=== PATIENT | female | born 1945 | race Caucasian/White ===

== ENCOUNTER 2016-12-19 20:35 | Inpatient (IN) ==
[2016-12-19] MEDS ORDERED: *HR* HYDROmorphone (PF) 1 MG/ML SYRINGE IVP PRN (23:00)
[2016-12-19] MEDS ORDERED: *HR* Promethazine 25 MG/ML VIAL IVP PRN (23:00)
[2016-12-19] MEDS ORDERED: 0.9 % Sodium Chloride 1,000 ML IVC SCH (23:00)
[2016-12-19] MEDS ORDERED: *HR* OxyCODONE Immed Rel 5 MG TABLET PO PRN (23:00)
[2016-12-19] MEDS ORDERED: Naloxone 0.4 MG/ML INJ IVP PRN (23:00)
[2016-12-20] MEDS ORDERED: Ipratropium/Albuterol Neb 3 ML IH PRN (00:35)
[2016-12-20] MEDS ORDERED: Dextrose Gel 15 GM PO PRN ×2 (00:35)
[2016-12-20] MEDS ORDERED: D5% in Water 1,000 ML IV PRN (00:35)
[2016-12-20] MEDS ORDERED: *HR* Dextrose 50 % in Water (Syg) 50 ML SYRINGE IVP PRN (00:35)
[2016-12-20] MEDS ORDERED: Benzonatate 100 MG CAPSULE PO PRN (00:35)
[2016-12-20] MEDS ORDERED: Vancomycin 1,500 MG in D5% in Water 250 ML IVPB SCH ×2 (01:00→09:00)
--- NOTE | 2016-12-20 02:20 | Internal Med History&Physical ---
<Abeba Diana - Last Filed: 12/20/16 03:22> Date of Encounter: 12/20/16 Time of Encounter: 01:30 Assessment and Plan (1) Sepsis Current visit: Yes Status: Acute WBC 14.1, Lactate 3.7 PIV Vanc 1g and Zosyn 3.375g given at [facility] Start Aztreonam, Vancomycin Blood cultures x 2, pending Wound culture, pending Urine culture, pending Qualifiers: Sepsis type: sepsis due to unspecified organism Qualified Code(s): A41.9 - Sepsis, unspecified organism (2) UTI (urinary tract infection) Current visit: Yes Status: Acute Urine culture, pending Cover for yeast with fluconazole Continue treatment plan as above Qualifiers: Urinary tract infection type: site unspecified Hematuria presence: with hematuria Qualified Code(s): N39.0 - Urinary tract infection, site not specified; R31.9 - Hematuria, unspecified (3) Abscess of skin of abdomen Current visit: Yes Status: Acute S/p incision and drainage wound culture, pending Repack wound once daily Continue treatment plan as above (4) Candidiasis Current visit: Yes Status: Acute IV Fluconazole Topical nystatin cream with overlying zinc oxide paste to infra-mammary folds, crease of pannus, groin (5) Diabetes type 2, uncontrolled Current visit: Yes Status: Acute Insulin protocol-basal and sliding scale Qualifiers: Diabetes mellitus complication status: with unspecified complications Diabetes mellitus intermediate card tender insulin use: unspecified residential insulin use status Qualified Code(s): E11.8 - Type 2 diabetes mellitus with unspecified complications; E11.65 - Type 2 diabetes mellitus with hyperglycemia; Z79.4 - residential (current) use of insulin (6) Chronic kidney disease Current visit: Yes Status: Acute Continue to monitor Qualifiers: Chronic kidney disease stage: stage 3 (moderate) Qualified Code(s): N18.3 - Chronic kidney disease, stage 3 (moderate) (7) DVT prophylaxis Current visit: Yes Status: Acute Heparin 5,000u subQ BID Internal Medicine - H&P: HPI Chief complaint: weakness, abscess Admitted From: Home Plans for Post Hospital Care: Home History of present illness: Ms. Cleary is a 71 year old female who presents to hospital today from [facility]. Patient presented to [facility] today with a 4 day history of inability to ambulate. She walks very little at baseline and spends most of her time sitting in the chair. She had a chemical stress test on Thursday due to dyspnea on exertion. She states that she has not felt well following the stress test. She states that she as been having weakness, dizziness, frequent urination. Her abdomen has had a not that has been tender, red, and swolllen. She denies fever, chills, headache, chest pain, racing heart, leg swelling,cough, dyspnea at rest, abdominal pain, nausea, vomiting, muscle pain. Past Med Surg Social Fam HX - Past Medical History Medical history: diabetes, hyperlipidemia, hypertension, other (peripheral neuropathy, obesity) Psychiatric history: anxiety - Past Surgical History Surgical History: appendectomy, orthopedic, other - Social History Smoking Status: Never smoker Smokeless Tobacco Status: No Alcohol use: none Drug use: none - Family History Father Living Status: Hx Family Cardiac Disorders: Yes ([place]) Hx Family Respiratory Disorders: No Hx Family Cancer: No Hx Family GI Disorders: No Hx Family Genitourinary Disorders: No Hx Family Endocrine Disorder: No Hx Family Musculoskeletal Disorders: No Hx Family Neuromuscular Disorders: No Hx Family Neurologic Disorders: No Hx Family HEENT Disorders: No Hx Family Autoimmune Disorders: No Hx Family Reproductive Disorders: No Hx Family Psychosocial Disorders: No Hx Family Medical Disorders: No Mother Living Status: Hx Family Cardiac Disorders: Yes ([place], triple bipass) Hx Family Respiratory Disorders: No Hx Family Cancer: No Hx Family GI Disorders: No Hx Family Genitourinary Disorders: No Hx Family Endocrine Disorder: No Hx Family Musculoskeletal Disorders: No Hx Family Neuromuscular Disorders: No Hx Family Neurologic Disorders: No Hx Family HEENT Disorders: No Hx Family Autoimmune Disorders: No Hx Family Reproductive Disorders: No Hx Family Psychosocial Disorders: No Hx Family Medical Disorders: No Brother Living Status: Still Living Hx Family Cardiac Disorders: No Hx Family Respiratory Disorders: No Hx Family Cancer: Yes Hx Family GI Disorders: No Hx Family Genitourinary Disorders: No Hx Family Endocrine Disorder: No Hx Family Musculoskeletal Disorders: Yes Hx Family Neuromuscular Disorders: No Hx Family Neurologic Disorders: No Hx Family HEENT Disorders: No Hx Family Autoimmune Disorders: No Hx Family Reproductive Disorders: No Hx Family Psychosocial Disorders: No Hx Family Medical Disorders: No Sister Living Status: Still Living Hx Family Cardiac Disorders: Yes Hx Family Respiratory Disorders: No Hx Family Cancer: No Hx Family GI Disorders: No Hx Family Genitourinary Disorders: No Hx Family Endocrine Disorder: Yes Hx Family Musculoskeletal Disorders: No Hx Family Neuromuscular Disorders: No Hx Family Neurologic Disorders: No Hx Family HEENT Disorders: No Hx Family Autoimmune Disorders: No Hx Family Reproductive Disorders: No Hx Family Psychosocial Disorders: No Hx Family Medical Disorders: No Internal Medicine - H&P: Meds Atorvastatin [Lipitor] 40 mg PO DAILY 12/19/16 [History] Buspirone HCl [Buspar] 10 mg PO BID 12/19/16 [History] Fenofibrate [Tricor] 54 mg PO DAILY 12/19/16 [History] Insulin ASPART [Novolog] 25 unit SQ TIDWM 12/19/16 [History] Insulin Glargine,Hum.rec.anlog [Lantus Solostar] 60 unit SQ DAILY 12/19/16 [ History] Metformin [Glucophage] 1,000 mg PO BID 12/19/16 [History] Pregabalin [Lyrica] 150 mg PO TID 12/19/16 [History] Quinapril HCl [Accupril] 40 mg PO HS 12/19/16 [History] Allergies Penicillins [PCN] Allergy (Mild, Verified 12/19/16 23:28) Itching All Systems PM: A 10-system review of systems was performed and is negative for pertinent findings except as documented above in the HPI. - Constitutional Vitals: Temp Pulse Resp BP Pulse Ox 98.5 F 119 19 114/61 96 12/19/16 22:37 12/19/16 22:37 12/19/16 22:37 12/19/16 22:37 12/19/16 22:37 General appearance: Present: disheveled, morbidly obese, pleasant, answers questions appropriately - Head Head exam: Present: atraumatic, normal inspection, normocephalic - Eye Eye exam: Present: EOMI - Respiratory Respiratory exam: Present: CTAB. Absent: rhonchi, wheezes - Cardiovascular Cardiovascular exam: Present: RRR, +S1, +S2, tachycardia - GI/Abdominal GI/Abdominal exam: Present: normal bowel sounds, soft, tenderness (tenderness to abdomen near abscess located at midline; tenderness to palpation below pannus ) - Rectal Additional comments: perirectal area violaceous and tender to palpation - Extremities Exam Extremities exam: Present: normal inspection, warm, radial pulses palpable and symetrical. Absent: pedal edema, tenderness - Incison Incision: Present: draining - Psychiatric Psychiatric exam: Present: normal affect - Skin Additional comments: abscess at midline abdomen draining serosanguinous fluid. Inframmary folds, fold of pannus, and groin with erythematous, foul-smelling, rash. Internal Med - H&P Results - EKG Data -: EKG Interpreted by Myself - Attending Attestation I examined this patient and my medical decision-making was reviewed with the [employer]ONE GRADER/PA/Advanced Practice Nurse/Resident Physician. I agree with the documented findings, disposition and treatment plan as described except to the extent set forth below. <Ricahr Eng - Last Filed: 12/24/16 01:18> Date of Encounter: 12/19/16 Time of Encounter: 23:00 Internal Medicine - H&P: HPI History of present illness: Ms. Cleary is a 71 year old female The patient was visited and interviewed and examined. I examined this patient and my medical decision-making was reviewed with the Resident Physician. I agree with the documented findings, disposition and treatment plan as described except to the extent set forth below. Cumulative laboratory and radiographic data reviewed and considered and discussed. Pertinent ancillary medical records including ECW and PCI documentation when available was reviewed and considered. Given the patient's presenting concerns, past medical history, clinical findings of symptoms, she is admitted at this time to undergo further evaluation and disposition. Orders were written as per the computerized physician order manager system.................... All Systems PM: A 10-system review of systems was performed and is negative for pertinent findings except as documented above in the HPI. - Constitutional Constitutional: as per HPI, malaise, no chills, no fever(s), no night sweats - EENT Eyes: as per HPI, no change in vision, no discharge, no pain, no photophobia Ears: as per HPI, no ear discharge, no ear pain, no tinnitus Nose, mouth and throat: as per HPI, no dysphagia, no nasal discharge, no neck pain, no sore throat - Cardiovascular Cardiovascular ROS IM: as per HPI, no chest pain, no diaphoresis, no dyspnea, no lightheadedness, no palpitations, no syncope - Respiratory Respiratory: as per HPI, no cough, no dyspnea, no wheezing, no excessive phlegm production - Gastrointestinal Gastrointestinal: as per HPI, no abdominal pain, no diarrhea, no hematemesis, no hematochezia, no melena, no nausea, no vomiting - Musculoskeletal Musculoskeletal ROS IM: as per HPI, no numbness, no tingling - Integumentary Integumentary IM: as per HPI, no rash, no unusual bruising - Neurological Neurological ROS: as per HPI, no confusion, no convulsions, no focal weakness, no numbness, no tingling, no tremor(s) - Psychiatric Psychiatric: as per HPI - Endocrine Endocrine IM: as per HPI - Hematologic/Lymphatic Hematologic/Lymphatic: as per HPI, no easy bruising - Allergic/Immunologic Allergic/Immunologic: as per HPI - Constitutional Vitals: Temp Pulse Resp BP Pulse Ox 98.2 F 83 18 122/63 97 12/24/16 00:13 12/24/16 00:13 12/24/16 00:13 12/24/16 00:13 12/24/16 00:13 Internal Med - H&P Results - Labs CBC & Chem 7: 12/20/16 05:26 12/22/16 10:16 - ABG Interpretation ABG results: 12/20/16 05:26 VBG pH 7.39 VBG pCO2 40 L VBG pO2 60 H VBG HCO3 24.2 - Impressions Vital Signs Temp Pulse Resp BP Pulse Ox 12/24/16 00:13 98.2 F 83 18 122/63 97 12/23/16 20:24 98.4 F 76 16 119/74 97 12/23/16 16:22 97.9 F 87 18 100/66 96 12/23/16 11:26 97.6 F 89 16 106/57 97 12/23/16 07:48 98.2 F 90 18 119/74 97 12/23/16 04:10 98.1 F 110 19 154/74 97 12/23/16 01:39 98.2 F 78 18 123/79 96 Intake and Output 12/23/16 12/23/16 12/24/16 15:59 23:59 07:59 Intake Total 460 / 460 590 / 590 Output Total 500 / 500 3100 / 3100 Balance -40 / -40 590 / 590 -3100 / -3100 Intake: IV Fluids 100 / 100 350 / 350 Azactam 2,000 MG In 100 / 100 100 / 100 Dextrose 5% (Minibag+) 100 ML 100 ML @ 200 mls/ hr IVPB Q8HR [facility] Rx#: [id number] Vancocin 1,250 MG In 250 / 250 Dextrose 5% 250 ML @ 166. 67 mls/hr IVPB Q12H [facility] Rx#:[id number] Oral 360 / 360 240 / 240 Output: Urine 500 / 500 3100 / 3100 Other: Meal Breakfast Dinner Percent of Meal Consumed 100% 100% Blood Glucose* 94 156 12/20/16 05:26 VBG pH 7.39 VBG pCO2 40 L VBG pO2 60 H VBG HCO3 24.2 Abnormal lab results RBC 3.46 M/mcL (3.82-4.97) L 12/20/16 05:26 Hgb 10.1 g/dL (11.5-15.4) L 12/20/16 05:26 Hct 30.9 % (35.3-44.9) L 12/20/16 05:26 ESR 98 mm/hr (0-15) H 12/20/16 05:26 PT 15.7 Seconds (9.4-12.1) H 12/22/16 10:16 APTT 25.9 Seconds (26.0-36.0) L 12/20/16 05:26 VBG pCO2 40 mmHg (41-51) L 12/20/16 05:26 VBG pO2 60 mmHg (25-40) H 12/20/16 05:26 Glucose 260 mg/dL (70-99) H 12/22/16 10:16 POC Glucose 156 (58-89) H 12/23/16 20:23 Hemoglobin A1c 8.4 % (-5.6) H 12/20/16 05:26 C-Peptide 3.9 ng/mL (0.8-3.5) H 12/20/16 05:26 Magnesium 1.3 mg/dL (1.6-2.6) L 12/22/16 04:57 C-Reactive Protein 210 mg/L (Less than 5) H 12/20/16 05:26 Albumin 2.7 g/dL (3.5-5.0) L 12/22/16 10:16 Globulin 4.4 g/dL (2.4-3.5) H 12/22/16 10:16 Albumin/Globulin Ratio 0.6 (1.1-2.2) L 12/22/16 10:16 HDL Cholesterol 21 mg/dL (40-59) L 12/20/16 05:26 Urine Glucose (UA) >=1000 mg/dL (Normal) H 12/20/16 05:50 Urine Urobilinogen 2.0 mg/dL (Normal) H 12/20/16 05:50 Ur Leukocyte Esterase Trace (Negative) H 12/20/16 05:50 Urine Microscopic WBC 5-15 per hpf (0-3) H 12/20/16 05:50 Ur Squamous Epith Cells Moderate per lpf (None-Few) H 12/20/16 05:50 Allergies Allergy/AdvReac Type Severity Reaction Status Date / Time Penicillins [PCN] Allergy Mild Itching Verified 12/19/16 23:28 Laboratory Results WBC 11.0 K/mcL (4.3-11.1) 12/20/16 05:26 RBC 3.46 M/mcL (3.82-4.97) L 12/20/16 05:26 Hgb 10.1 g/dL (11.5-15.4) L 12/20/16 05:26 Hct 30.9 % (35.3-44.9) L 12/20/16 05:26 MCV 89.3 fL (83.0-100.0) 12/20/16 05:26 MCH 29.2 pg (28.0-33.3) 12/20/16 05:26 MCHC 32.7 g/dL (31.6-35.5) 12/20/16 05:26 RDW 13.4 % (11.5-14.5) 12/20/16 05:26 Plt Count 190 K/mcL (140-400) 12/20/16 05:26 MPV 11.3 fL (9.4-12.4) 12/20/16 05:26 Immature Gran % 0.6 % (0-4) 12/20/16 05:26 Seg Neutrophils % 76.5 % 12/20/16 05:26 Lymphocytes % 11.9 % 12/20/16 05:26 Monocytes % 10.2 % 12/20/16 05:26 Eosinophils % 0.6 % 12/20/16 05:26 Basophils % 0.2 % 12/20/16 05:26 Neutrophils # 8.4 K/mcL (1.6-8.9) 12/20/16 05:26 Lymphocytes # 1.3 K/mcL (0.6-4.6) 12/20/16 05:26 Monocytes # 1.1 K/mcL (0.0-1.3) 12/20/16 05:26 Eosinophils # 0.1 K/mcL (0.0-0.6) 12/20/16 05:26 Basophils # 0.0 K/mcL (0.0-0.2) 12/20/16 05:26 ESR 98 mm/hr (0-15) H 12/20/16 05:26 PT 15.7 Seconds (9.4-12.1) H 12/22/16 10:16 INR 1.4 12/22/16 10:16 APTT 25.9 Seconds (26.0-36.0) L 12/20/16 05:26 VBG pH 7.39 pH Units (7.32-7.42) 12/20/16 05:26 VBG pCO2 40 mmHg (41-51) L 12/20/16 05:26 VBG pO2 60 mmHg (25-40) H 12/20/16 05:26 VBG HCO3 24.2 mEq/L (21-27) 12/20/16 05:26 Sodium 140 mEq/L (136-145) 12/22/16 10:16 Potassium 4.5 mEq/L (3.5-4.5) 12/22/16 10:16 Chloride 108 mEq/L (98-109) 12/22/16 10:16 Carbon Dioxide 20 mEq/L (19-29) 12/22/16 10:16 BUN 10 mg/dL (7-20) 12/22/16 10:16 Creatinine 0.88 mg/dL (0.57-1.11) 12/22/16 10:16 Est GFR ( Amer) > 60 (> 60) 12/22/16 10:16 Est GFR (Non-Af Amer) > 60 (> 60) 12/22/16 10:16 BUN/Creatinine Ratio 11 (6-26) 12/22/16 10:16 Glucose 260 mg/dL (70-99) H 12/22/16 10:16 POC Glucose 156 (58-89) H 12/23/16 20:23 Est Mean Plasma Glucose 194 mg/dl 12/20/16 05:26 Hemoglobin A1c 8.4 % (-5.6) H 12/20/16 05:26 C-Peptide 3.9 ng/mL (0.8-3.5) H 12/20/16 05:26 Calculated Osmolality 298 (280-300) 12/22/16 10:16 Lactic Acid 1.1 mmol/L (0.5-2.2) 12/20/16 05:26 Calcium 9.5 mg/dL (8.6-10.8) 12/22/16 10:16 Ionized Calcium 1.28 mmol/L (1.15-1.35) 12/20/16 05:26 Phosphorus 3.5 mg/dL (2.3-4.7) 12/22/16 04:57 Magnesium 1.3 mg/dL (1.6-2.6) L 12/22/16 04:57 Total Bilirubin 0.4 mg/dL (0.2-1.2) 12/22/16 10:16 AST 18 Units/L (5-34) 12/22/16 10:16 ALT 17 Units/L (0-55) 12/22/16 10:16 Alkaline Phosphatase 60 Units/L (38-126) 12/22/16 10:16 Creatine Kinase 59 Units/L (29-168) 12/20/16 05:26 Troponin I 0.01 ng/mL (0-0.03) 12/20/16 05:26 C-Reactive Protein 210 mg/L (Less than 5) H 12/20/16 05:26 Serum Total Protein 7.1 g/dL (6.0-8.3) 12/22/16 10:16 Albumin 2.7 g/dL (3.5-5.0) L 12/22/16 10:16 Globulin 4.4 g/dL (2.4-3.5) H 12/22/16 10:16 Albumin/Globulin Ratio 0.6 (1.1-2.2) L 12/22/16 10:16 Triglycerides 90 mg/dL (< 150) 12/20/16 05:26 Cholesterol 85 mg/dL (< 200) 12/20/16 05:26 LDL Cholesterol, Calc 46 mg/dL (0-99) 12/20/16 05:26 VLDL Cholesterol, Calc 18 mg/dL (< 31) 12/20/16 05:26 HDL Cholesterol 21 mg/dL (40-59) L 12/20/16 05:26 Cholesterol/HDL Ratio 4.0 (0-4.9) 12/20/16 05:26 TSH 1.397 mcIU/mL (0.350-4.840) 12/20/16 05:26 Urine Color Yellow (Yellow) 12/20/16 05:50 Urine Clarity Clear (Clear) 12/20/16 05:50 Urine pH 6.0 pH Units (5.0-8.0) 12/20/16 05:50 Ur Specific [place] 1.012 (1.010-1.025) 12/20/16 05:50 Urine Protein Negative mg/dL (Neg-Trace) 12/20/16 05:50 Urine Glucose (UA) >=1000 mg/dL (Normal) H 12/20/16 05:50 Urine Ketones Negative mg/dL (Negative) 12/20/16 05:50 Urine Blood Negative (Negative) 12/20/16 05:50 Urine Nitrite Negative (Negative) 12/20/16 05:50 Urine Bilirubin Negative (Negative) 12/20/16 05:50 Urine Urobilinogen 2.0 mg/dL (Normal) H 12/20/16 05:50 Ur Leukocyte Esterase Trace (Negative) H 12/20/16 05:50 Urine Microscopic RBC 0-3 per hpf (0-3) 12/20/16 05:50 Urine Microscopic WBC 5-15 per hpf (0-3) H 12/20/16 05:50 Ur Squamous Epith Cells Moderate per lpf (None-Few) H 12/20/16 05:50 Urine Bacteria None Seen per hpf (None-Few) 12/20/16 05:50 Hyaline Casts None Seen per lpf (None-Few) 12/20/16 05:50 Vancomycin Trough 15.7 mcg/mL (10-20) 12/22/16 21:44 MRSA Surveillance Scrn Negative (Negative) 12/20/16 06:00 - Attending Attestation My signature below is to certify that this patient is under my care and that I, or Resident Physician working with me, has had a [id number] encounter with this patient. Plan of care has been reviewed and discussed in detail with the patient. Questions addressed. Advanced directive discussion briefly addressed. The patient does not to clear any healthcare restrictions at this time. Outpatient medication schedules will be reviewed, confirmed and facilitated as appropriate. Reconciliation of home treatments including adjustments, substitutions and reintroduction into the treatment regimen will address necessary maintenance therapies for chronic pre-existing medical conditions. Hospital course will be dependent on clinical findings, treatment response and potential consultative interventions. The patient is at risk for further acute clinical decline and morbidity given her advanced age, presenting chief complaints, findings and comorbidities. Condition is serious. Prognosis is guarded. CODE STATUS is reported as full.
[2016-12-20 05:38] LABS: Basophils % 0.2 %; Eosinophils # 0.1 K/mcL (0.0-0.6); Eosinophils % 0.6 %; Hematocrit 30.9 % (35.3-44.9); Hemoglobin 10.1 g/dL (11.5-15.4); Immature Granulocytes % 0.6 % (0-4); Lymphocytes # 1.3 K/mcL (0.6-4.6); Lymphocytes % 11.9 %; Mean Corpuscular HGB Conc 32.7 g/dL (31.6-35.5); Mean Corpuscular Hemoglobin 29.2 pg (28.0-33.3); Mean Corpuscular Volume 89.3 fL (83.0-100.0); Mean Platelet Volume 11.3 fL (9.4-12.4); Monocytes # 1.1 K/mcL (0.0-1.3); Monocytes % 10.2 %; Neutrophils # 8.4 K/mcL (1.6-8.9); Platelet Count 190 K/mcL (140-400); Red Blood Count 3.46 M/mcL (3.82-4.97); Red Cell Distribution Width 13.4 % (11.5-14.5); Segmented Neutrophils % 76.5 %
[2016-12-20 05:39] LABS: VBG HCO3 24.2 mEq/L (21-27); VBG PH 7.39 pH Units (7.32-7.42)
[2016-12-20 05:43] LABS: INR 1.7; Prothrombin Time 18.2 Seconds (9.4-12.1)
[2016-12-20 05:44] LABS: Ionized Calcium 1.28 mmol/L (1.15-1.35)
[2016-12-20 05:46] LABS: Activated Partial Thrombo Time 25.9 Seconds (26.0-36.0)
[2016-12-20 05:53] LABS: Hemoglobin A1C 8.4 %
[2016-12-20 05:55] LABS: Alanine Aminotransferase 15 Units/L (0-55); Albumin 2.8 g/dL (3.5-5.0); Albumin/Globulin Ratio 0.7 (1.1-2.2); Alkaline Phosphatase 63 Units/L (38-126); Aspartate Amino Transferase 12 Units/L (5-34); BUN/Creatinine Ratio 14 (6-26); Bilirubin,Total 0.5 mg/dL (0.2-1.2); Blood Urea Nitrogen 12 mg/dL (7-20); Calcium 9.8 mg/dL (8.6-10.8); Carbon Dioxide 20 mEq/L (19-29); Chloride 107 mEq/L (98-109); Cholesterol 85 mg/dL (< 200); Creatine Kinase 59 Units/L (29-168); Globulin 4.2 g/dL (2.4-3.5); Glucose 303 mg/dL (70-99); HDL Cholesterol 21 mg/dL (40-59); LDL Cholesterol,Calculated 46 mg/dL (0-99); Osmolality,Calculated 297 (280-300); Phosphorous 2.2 mg/dL (2.3-4.7); Potassium 4.3 mEq/L (3.5-4.5); Sodium 138 mEq/L (136-145); Triglycerides 90 mg/dL (< 150); eGFR For African Americans > 60 (> 60); eGFR For Non-African Americans > 60 (> 60)
[2016-12-20 06:02] LABS: Bilirubin,Urine Negative (Negative); Blood,Urine Negative (Negative); Clarity,Urine Clear (Clear); Color,Urine Yellow (Yellow); Glucose,Urine (UA) >=1000 mg/dL (Normal); Ketones,Urine Negative (Negative); Leukocyte Esterase,Urine Trace (Negative); Nitrite,Urine Negative (Negative); Protein,Urine Negative (Neg-Trace); Specific Gravity,Urine 1.012 (1.010-1.025)
[2016-12-20 06:05] LABS: Bacteria,Urine None Seen per hpf (None-Few); Hyaline Casts,Urine None Seen per lpf (None-Few); RBC,Urine 0-3 per hpf (0-3); Squamous Epithelial Cell,Urine Moderate per lpf (None-Few)
[2016-12-20 06:16] LABS: Thyroid Stimulating Hormone 1.397 mcIU/mL (0.350-4.840)
[2016-12-20 06:37] LABS: C-Reactive Protein 210 mg/L (Less than 5)
[2016-12-20] MEDS: *HR* Heparin 5,000 UNIT/ML VIAL SQ SCH ×2 (06:43→21:47)
[2016-12-20] MEDS: Acetaminophen 325 MG TABLET PO PRN (06:43)
[2016-12-20] MEDS ORDERED: Magnesium Sulfate 2 GM in D5% in Water 100 ML IVPB ONE (08:34)
[2016-12-20] MEDS ORDERED: Sodium Phosphate 30 MMOL in D5% in Water 100 ML IVPB ONE (08:34)
[2016-12-20] MEDS: Fenofibrate 54 MG TABLET PO SCH (08:36)
[2016-12-20] MEDS: Pregabalin 75 MG CAPSULE PO SCH ×3 (08:36→21:43)
[2016-12-20] MEDS: Lactobacillus 1 EACH CAP.SPRINK PO SCH ×2 (08:36→21:42)
[2016-12-20] MEDS: Insulin LISPRO 300 UNITS/3 ML VIAL SQ SCH ×7 (08:37→21:51)
[2016-12-20] MEDS: Pantoprazole 40 MG VIAL IVP SCH (08:37)
--- NOTE | 2016-12-20 08:37 | Internal Med Progress Note ---
Date of Encounter: 12/20/16 Time of Encounter: 08:35 - Assessment and plan (1) Sepsis Current Visit: Yes Status: Acute Assessment and plan: Patient presented with fever, tachycardia, mild leukocytosis, lactic acidosis with a source of infection. Continue broad-spectrum IV antibiotics and monitor clinically. Follow up pancultures. Noted to have improved leukocytosis and vital signs, lactic acid came back to normal. Qualifiers: Sepsis type: sepsis due to unspecified organism Qualified Code(s): A41.9 - Sepsis, unspecified organism (2) Abscess of skin of abdomen Current Visit: Yes Status: Acute Assessment and plan: Anterior abdominal wall abscess status post incision and drainage in the emergency room. Follow up blood and wound cultures. IV hydration. Continue IV vancomycin and aztreonam due to penicillin allergy. Continue local wound care with iodoform packing daily. High risk patient, at risk for worsening sepsis and shock. Monitor closely. (3) UTI (urinary tract infection) Current Visit: Yes Status: Acute Assessment and plan: Urine dipstick suggestive of UTI. Continue IV antibiotics and follow blood and urine cultures. Qualifiers: Urinary tract infection type: site unspecified Hematuria presence: with hematuria Qualified Code(s): N39.0 - Urinary tract infection, site not specified; R31.9 - Hematuria, unspecified (4) Essential hypertension Current Visit: Yes Status: Chronic (5) Obesity Current Visit: Yes Status: Chronic Qualifiers: Obesity type: due to excess calories Obesity severity: non-morbid Qualified Code(s): E66.09 - Other obesity due to excess calories (6) Candidiasis Current Visit: Yes Status: Acute Assessment and plan: Noted to have severe intertrigo likely related to uncontrolled diabetes. Continue topical nystatin powder along with IV fluconazole. (7) Diabetes type 2, uncontrolled Current Visit: Yes Status: Chronic Assessment and plan: Hemoglobin A1c noted to be 8.4%. Continue Accu-Chek blood glucose monitoring with basal bolus insulin regimen. Blood sugar control is essential to control underlying infection. Diabetic diet. Qualifiers: Diabetes mellitus complication status: with unspecified complications Diabetes mellitus retirement insulin use: with retirement use Qualified Code(s) : E11.8 - Type 2 diabetes mellitus with unspecified complications; E11.65 - Type 2 diabetes mellitus with hyperglycemia; Z79.4 - jail (current) use of insulin (8) Hypomagnesemia Current Visit: Yes Status: Acute Assessment and plan: Likely related to poor oral intake. Supplement with IV magnesium sulfate and monitored closely. (9) Hypophosphatemia Current Visit: Yes Status: Acute Assessment and plan: Supplement with IV and oral sodium phosphate, recheck in a.m. - Subjective Interval history: Noted to have low-grade fever. Currently not in distress. Complains of mild abdominal pain at the site of abscess drainage. No nausea, vomiting, diarrhea. Occasional chronic cough. No chest pain or shortness of breath. Reports feeling tired. - Constitutional Vitals: Temp Pulse Resp BP Pulse Ox 99.4 F 126 24 135/70 95 12/20/16 07:01 12/20/16 07:01 12/20/16 07:01 12/20/16 07:01 12/20/16 07:01 General appearance: Present: A&O X 3, obese, answers questions appropriately - Head Head exam: Present: atraumatic, normocephalic - Neck Neck exam general surgery: Present: supple, trachea midline. Absent: lymphadenopathy - Respiratory Respiratory exam: Present: CTAB. Absent: accessory muscle use, rales, rhonchi, wheezes - Cardiovascular Cardiovascular exam: Present: RRR, +S1, +S2, tachycardia. Absent: diastolic murmur, gallop, rubs, systolic murmur - GI/Abdominal GI/Abdominal exam: Present: normal bowel sounds, soft (Obese, 1 cm incision on anterior abdominal wall for I&D, wound packed with iodoform strips. Surrounding area with erythema, induration and tenderness.), no peritoneal signs. Absent: distended, tenderness - Extremities Exam Extremities exam: Present: full ROM, warm, radial pulses palpable and symetrical. Absent: calf tenderness, cyanotic, pedal edema - Neurological Exam Neurological exam: Present: CN II-XII intact, oriented X3, no focal deficits. Absent: pronater drift, facial droop, speech deficit - Psychiatric Psychiatric exam: Present: depressed, flat affect - Skin Skin exam: Present: dry, intact Internal Medicine: Result - Labs CBC & Chem 7: 12/20/16 05:26 12/20/16 05:26 Labs: Short CBC 12/20/16 Range/Units 05:26 WBC 11.0 (4.3-11.1) K/mcL Hgb 10.1 L (11.5-15.4) g/dL Hct 30.9 L (35.3-44.9) % Plt Count 190 (140-400) K/mcL Neutrophils # 8.4 (1.6-8.9) K/mcL BMP 12/20/16 05:26 Sodium 138 Potassium 4.3 Chloride 107 Carbon Dioxide 20 BUN 12 Creatinine 0.87 Glucose 303 H Calcium 9.8 Cardiac Enzymes 12/20/16 Range/Units 05:26 Troponin I 0.01 (0-0.03) ng/mL Liver Function 12/20/16 Range/Units 05:26 Total Bilirubin 0.5 (0.2-1.2) mg/dL AST 12 (5-34) Units/L ALT 15 (0-55) Units/L Alkaline Phosphatase 63 (38-126) Units/L Albumin 2.8 L (3.5-5.0) g/dL Urine 12/20/16 Range/Units 05:50 Urine Color Yellow (Yellow) Urine Clarity Clear (Clear) Urine pH 6.0 (5.0-8.0) pH Units Ur Specific [place] 1.012 (1.010-1.025) Urine Protein Negative (Neg-Trace) mg/dL Urine Glucose (UA) >=1000 H (Normal) mg/dL - ABG Interpretation ABG results: PT/INR, D-dimer PT 18.2 Seconds (9.4-12.1) H 12/20/16 05:26 Consult Discharge Plan - Plan Referrals: Toni Lopez MD [Primary Care Provider] -
[2016-12-20] MEDS: Desitin (Zinc Oxide) 56 GM TUBE TP SCH ×3 (08:38→21:52)
[2016-12-20] MEDS: Nystatin Cream 15 GM TUBE TP SCH ×2 (08:38→21:51)
[2016-12-20] MEDS: Aztreonam 2,000 MG in D5% in Water (Mini-Bag+) 100 ML IVPB SCH ×3 (10:30→23:13)
[2016-12-20] MEDS: Fluconazole 200 MG/100 ML 200 MG/100 ML BAG IVPB SCH (13:51)
[2016-12-20] MEDS: 0.9 % Sodium Chloride 1,000 ML IVC SCH (13:52)
[2016-12-20] MEDS: Lisinopril 20 MG TABLET PO SCH (21:42)
[2016-12-20] MEDS: Insulin DETEMIR 100 UNIT/ML X5UNITS SQ SCH (23:16)
[2016-12-21] MEDS: Acetaminophen 325 MG TABLET PO PRN (00:56)
[2016-12-21 04:57] LABS: BUN/Creatinine Ratio 12 (6-26); Blood Urea Nitrogen 9 mg/dL (7-20); Calcium 9.1 mg/dL (8.6-10.8); Carbon Dioxide 22 mEq/L (19-29); Chloride 106 mEq/L (98-109); Glucose 175 mg/dL (70-99); Magnesium 1.3 mg/dL (1.6-2.6); Osmolality,Calculated 287 (280-300); Sodium 137 mEq/L (136-145); eGFR For African Americans > 60 (> 60); eGFR For Non-African Americans > 60 (> 60)
[2016-12-21 04:58] LABS: Phosphorous 3.4 mg/dL (2.3-4.7)
[2016-12-21] MEDS: 0.9 % Sodium Chloride 1,000 ML IVC SCH ×2 (05:18→11:45)
[2016-12-21] MEDS: Aztreonam 2,000 MG in D5% in Water (Mini-Bag+) 100 ML IVPB SCH ×3 (08:33→23:13)
[2016-12-21] MEDS: Fluconazole 200 MG/100 ML 200 MG/100 ML BAG IVPB SCH (08:46)
[2016-12-21] MEDS: Insulin LISPRO 300 UNITS/3 ML VIAL SQ SCH ×6 (08:46→16:39)
[2016-12-21] MEDS: *HR* Heparin 5,000 UNIT/ML VIAL SQ SCH ×2 (08:46→23:12)
[2016-12-21] MEDS: Pantoprazole 40 MG VIAL IVP SCH (08:47)
[2016-12-21] MEDS: Lactobacillus 1 EACH CAP.SPRINK PO SCH ×2 (08:47→23:12)
[2016-12-21] MEDS: Fenofibrate 54 MG TABLET PO SCH (08:47)
[2016-12-21] MEDS: Pregabalin 75 MG CAPSULE PO SCH ×3 (08:47→23:12)
[2016-12-21] MEDS: Desitin (Zinc Oxide) 56 GM TUBE TP SCH ×2 (08:47→14:28)
[2016-12-21] MEDS: Insulin DETEMIR 100 UNIT/ML X5UNITS SQ SCH (08:47)
[2016-12-21] MEDS: Nystatin Cream 15 GM TUBE TP SCH (08:48)
[2016-12-21] MEDS ORDERED: Magnesium Sulfate 2 GM in D5% in Water 100 ML IVPB ONE (09:58)
[2016-12-21] MEDS ORDERED: Vancomycin 1,500 MG in D5% in Water 250 ML IVPB SCH (10:00)
--- NOTE | 2016-12-21 10:08 | Internal Med Progress Note ---
Date of Encounter: 12/21/16 Time of Encounter: 10:07 - Assessment and plan (1) Sepsis Current Visit: Yes Status: Acute Assessment and plan: Patient presented with fever, tachycardia, mild leukocytosis, lactic acidosis with a source of infection. Blood cultures from emergency room are pending. Urine culture grows gram-negative rods, wound cultures from abdominal wall abscess grows gram-positive cocci so far. Follow up final cultures and continue IV vancomycin and aztreonam for now. Continue IV hydration. Repeat blood, urine and wound cultures remain negative so far. Physical therapy evaluation noted, recommend placement in extended care facility for continued rehabilitation. youth services librarian consult. Qualifiers: Sepsis type: sepsis due to unspecified organism Qualified Code(s): A41.9 - Sepsis, unspecified organism (2) Abscess of skin of abdomen Current Visit: Yes Status: Acute Assessment and plan: Anterior abdominal wall abscess status post incision and drainage in the emergency room. Initial wound cultures grew gram-positive cocci, follow up final results. Continue IV hydration. Continue IV vancomycin and aztreonam due to penicillin allergy. Continue local wound care with iodoform packing daily. High risk patient, at risk for worsening sepsis and shock. Monitor closely. (3) UTI (urinary tract infection) Current Visit: Yes Status: Acute Assessment and plan: Urine dipstick suggestive of UTI. Initial urine culture grows gram-negative rods, follow up final results. Continue IV antibiotics and follow blood and urine cultures. Qualifiers: Urinary tract infection type: site unspecified Hematuria presence: with hematuria Qualified Code(s): N39.0 - Urinary tract infection, site not specified; R31.9 - Hematuria, unspecified (4) Essential hypertension Current Visit: Yes Status: Chronic (5) Obesity Current Visit: Yes Status: Chronic Qualifiers: Obesity type: due to excess calories Obesity severity: non-morbid Qualified Code(s): E66.09 - Other obesity due to excess calories (6) Candidiasis Current Visit: Yes Status: Acute Assessment and plan: Noted to have severe intertrigo likely related to uncontrolled diabetes. Continue topical nystatin powder along with IV fluconazole. (7) Diabetes type 2, uncontrolled Current Visit: Yes Status: Chronic Assessment and plan: Hemoglobin A1c noted to be 8.4%. Continue Accu-Chek blood glucose monitoring with basal bolus insulin regimen. Blood sugars noted to be elevated, increase the dose of Levemir and sliding scale. Blood sugar control is essential to control underlying infection. Diabetic diet. Qualifiers: Diabetes mellitus complication status: with unspecified complications Diabetes mellitus dining room tables set up attendant insulin use: with long-term use Qualified Code(s) : E11.8 - Type 2 diabetes mellitus with unspecified complications; E11.65 - Type 2 diabetes mellitus with hyperglycemia; Z79.4 - slip laster (current) use of insulin (8) Hypomagnesemia Current Visit: Yes Status: Acute Assessment and plan: Likely related to poor oral intake. Supplement with IV magnesium sulfate. (9) Hypophosphatemia Current Visit: Yes Status: Resolved - Subjective Interval history: Improved fever and tachycardia. He reports feeling better today. Mild abdominal pain at the site of incision and drainage. No nausea, vomiting, diarrhea, chest pain or shortness of breath. - Constitutional Vitals: Temp Pulse Resp BP Pulse Ox 97.6 F 93 18 121/76 94 L 12/21/16 07:31 12/21/16 07:31 12/21/16 07:31 12/21/16 07:12/21/16 09:08 General appearance: Present: A&O X 3, obese, answers questions appropriately - Respiratory Respiratory exam: Present: CTAB. Absent: accessory muscle use, rales, rhonchi, wheezes - Cardiovascular Cardiovascular exam: Present: RRR, +S1, +S2. Absent: diastolic murmur, gallop, rubs, systolic murmur - GI/Abdominal GI/Abdominal exam: Present: normal bowel sounds, soft (1 cm incision at the site of abdominal wall abscess, packing with either form with surrounding cellulitis. Improved erythema with persistent tenderness and induration.), no peritoneal signs. Absent: distended, tenderness Internal Medicine: Result - Labs CBC & Chem 7: 12/20/16 05:26 12/21/16 04:35 Labs: BMP 12/21/16 04:35 Sodium 137 Potassium 4.0 Chloride 106 Carbon Dioxide 22 BUN 9 Creatinine 0.77 Glucose 175 H Calcium 9.1 - ABG Interpretation ABG results: PT/INR, D-dimer PT 18.2 Seconds (9.4-12.1) H 12/20/16 05:26 - VTE Documentation of Mechanical Device: Intermittent pneumatic compression device Consult Discharge Plan - Plan Referrals: Toni Lopez MD [Primary Care Provider] - (ECF)
[2016-12-21] MEDS: Vancomycin 1,250 MG in D5% in Water 250 ML IVPB SCH (10:53)
[2016-12-21] MEDS: Lisinopril 20 MG TABLET PO SCH (23:12)
[2016-12-22] MEDS: Vancomycin 1,250 MG in D5% in Water 250 ML IVPB SCH ×3 (00:12→22:41)
[2016-12-22] MEDS: Desitin (Zinc Oxide) 56 GM TUBE TP SCH ×5 (00:17→22:12)
[2016-12-22] MEDS: Insulin LISPRO 300 UNITS/3 ML VIAL SQ SCH ×8 (00:17→22:23)
[2016-12-22] MEDS: Nystatin Cream 15 GM TUBE TP SCH ×3 (00:18→22:16)
[2016-12-22] MEDS: Insulin DETEMIR 100 UNIT/ML X5UNITS SQ SCH ×3 (00:20→22:05)
[2016-12-22 05:24] LABS: Magnesium 1.3 mg/dL (1.6-2.6); Phosphorous 3.5 mg/dL (2.3-4.7)
[2016-12-22] MEDS: Aztreonam 2,000 MG in D5% in Water (Mini-Bag+) 100 ML IVPB SCH ×2 (08:00→16:09)
[2016-12-22] MEDS ORDERED: D5% in Water (Mini-Bag+) 100 ML IVPB ONE (08:08)
[2016-12-22] MEDS: 0.9 % Sodium Chloride 1,000 ML IVC SCH (08:19)
[2016-12-22] MEDS ORDERED: Magnesium Sulfate 2 GM in D5% in Water 100 ML IVPB ONE (09:12)
[2016-12-22] MEDS: *HR* Heparin 5,000 UNIT/ML VIAL SQ SCH ×2 (09:31→21:47)
[2016-12-22] MEDS: Pregabalin 75 MG CAPSULE PO SCH ×3 (09:31→22:05)
[2016-12-22] MEDS: Lactobacillus 1 EACH CAP.SPRINK PO SCH ×2 (09:32→22:05)
[2016-12-22] MEDS: Fenofibrate 54 MG TABLET PO SCH (09:32)
[2016-12-22] MEDS: Pantoprazole 40 MG VIAL IVP SCH (09:33)
[2016-12-22] MEDS: Fluconazole 200 MG/100 ML 200 MG/100 ML BAG IVPB SCH (09:33)
--- NOTE | 2016-12-22 09:49 | Internal Med Progress Note ---
Date of Encounter: 12/22/16 Time of Encounter: 09:47 - Assessment and plan (1) Sepsis Current Visit: Yes Status: Acute Assessment and plan: Patient presented with fever, tachycardia, mild leukocytosis, lactic acidosis with a source of infection. Blood cultures from emergency room are pending. Urine culture grows gram-negative rods, wound cultures from abdominal wall abscess grows gram-positive cocci so far. Follow up final cultures and continue IV vancomycin and aztreonam for now. Repeat blood, urine and wound cultures in our hospital remain negative so far. Physical therapy evaluation noted, recommend placement in extended care facility for continued rehabilitation. Patient and family to decide. business services assistant consult. Qualifiers: Sepsis type: sepsis due to unspecified organism Qualified Code(s): A41.9 - Sepsis, unspecified organism (2) Abscess of skin of abdomen Current Visit: Yes Status: Acute Assessment and plan: Anterior abdominal wall abscess secondary to subcutaneous insulin injections, status post incision and drainage in the emergency room. Initial wound cultures grew gram-positive cocci, follow up final results. Continue IV vancomycin and aztreonam due to penicillin allergy. Continue local wound care with iodoform packing daily. High risk patient, at risk for worsening sepsis and shock. Monitor closely. (3) UTI (urinary tract infection) Current Visit: Yes Status: Acute Assessment and plan: Urine dipstick suggestive of UTI. Initial urine culture grows gram-negative rods, follow up final results. Continue IV antibiotics and follow blood and urine cultures. Qualifiers: Urinary tract infection type: site unspecified Hematuria presence: with hematuria Qualified Code(s): N39.0 - Urinary tract infection, site not specified; R31.9 - Hematuria, unspecified (4) Essential hypertension Current Visit: Yes Status: Chronic (5) Obesity Current Visit: Yes Status: Chronic Qualifiers: Obesity type: due to excess calories Obesity severity: non-morbid Qualified Code(s): E66.09 - Other obesity due to excess calories (6) Candidiasis Current Visit: Yes Status: Acute Assessment and plan: Noted to have severe intertrigo likely related to uncontrolled diabetes. Continue topical nystatin powder along with IV fluconazole. (7) Diabetes type 2, uncontrolled Current Visit: Yes Status: Chronic Assessment and plan: Hemoglobin A1c noted to be 8.4%. Continue Accu-Chek blood glucose monitoring with basal bolus insulin regimen. Blood sugars noted to be better controlled now. Blood sugar control is essential to control underlying infection. Diabetic diet. Qualifiers: Diabetes mellitus complication status: with unspecified complications Diabetes mellitus longterm insulin use: with intermodal dispatcher use Qualified Code(s) : E11.8 - Type 2 diabetes mellitus with unspecified complications; E11.65 - Type 2 diabetes mellitus with hyperglycemia; Z79.4 - [facility] (current) use of insulin (8) Hypomagnesemia Current Visit: Yes Status: Acute Assessment and plan: Noted to have persistent hypomagnesemia. Supplement with IV magnesium sulfate and start oral magnesium oxide daily. - Subjective Interval history: Feels better. No fevers, chills, chest pain or shortness of breath. Good appetite. Mild pain on abdominal wall at the site of incision and drainage. Physical therapy evaluation recommends placement in extended care facility for continued rehabilitation, however patient is undecided and states she prefers home health. - Constitutional Vitals: Temp Pulse Resp BP Pulse Ox 98.2 F 91 18 112/63 95 12/22/16 04:30 12/22/16 04:30 12/22/16 04:30 12/22/16 04:30 12/22/16 04:30 General appearance: Present: A&O X 3, obese, answers questions appropriately - Respiratory Respiratory exam: Present: CTAB. Absent: accessory muscle use, rales, rhonchi, wheezes - Cardiovascular Cardiovascular exam: Present: RRR, +S1, +S2. Absent: diastolic murmur, gallop, rubs, systolic murmur - GI/Abdominal GI/Abdominal exam: Present: normal bowel sounds, soft (Tenderness over anterior abdominal wall with 1 cm opening status post incision and drainage, with iodoform packing, improving surrounding cellulitis except induration and tenderness), no peritoneal signs. Absent: distended, tenderness Internal Medicine: Result - Labs CBC & Chem 7: 12/20/16 05:26 12/21/16 04:35 - ABG Interpretation ABG results: PT/INR, D-dimer PT 18.2 Seconds (9.4-12.1) H 12/20/16 05:26 - VTE Documentation of Mechanical Device: Intermittent pneumatic compression device Consult Discharge Plan - Plan Referrals: Toni Lopez MD [Primary Care Provider] - (ECF)
[2016-12-22] MEDS: Magnesium Oxide 400 MG TABLET PO SCH ×2 (10:03→22:05)
[2016-12-22 10:39] LABS: INR 1.4; Prothrombin Time 15.7 Seconds (9.4-12.1)
[2016-12-22 10:52] LABS: Alanine Aminotransferase 17 Units/L (0-55); Albumin 2.7 g/dL (3.5-5.0); Albumin/Globulin Ratio 0.6 (1.1-2.2); Alkaline Phosphatase 60 Units/L (38-126); Aspartate Amino Transferase 18 Units/L (5-34); BUN/Creatinine Ratio 11 (6-26); Bilirubin,Total 0.4 mg/dL (0.2-1.2); Blood Urea Nitrogen 10 mg/dL (7-20); Calcium 9.5 mg/dL (8.6-10.8); Carbon Dioxide 20 mEq/L (19-29); Chloride 108 mEq/L (98-109); Globulin 4.4 g/dL (2.4-3.5); Glucose 260 mg/dL (70-99); Osmolality,Calculated 298 (280-300); Potassium 4.5 mEq/L (3.5-4.5); Sodium 140 mEq/L (136-145); Total Protein 7.1 g/dL (6.0-8.3); eGFR For African Americans > 60 (> 60); eGFR For Non-African Americans > 60 (> 60)
[2016-12-22] MEDS ORDERED: Ondansetron 4 MG/2 ML VIAL IVP PRN (12:50)
[2016-12-22] MEDS: Miconazole w/zinc oxide&karaya 92 APPL/92 GM TUBE TP SCH ×3 (13:54→22:19)
[2016-12-22] MEDS: Lisinopril 20 MG TABLET PO SCH (22:04)
[2016-12-23] MEDS: Aztreonam 2,000 MG in D5% in Water (Mini-Bag+) 100 ML IVPB SCH ×3 (02:27→15:47)
[2016-12-23] MEDS: *HR* Heparin 5,000 UNIT/ML VIAL SQ SCH ×2 (06:13→18:33)
[2016-12-23] MEDS ORDERED: Magnesium Sulfate 2 GM in D5% in Water 100 ML IVPB ONE (08:21)
[2016-12-23] MEDS: Lactobacillus 1 EACH CAP.SPRINK PO SCH ×2 (08:33→22:55)
[2016-12-23] MEDS: Fluconazole 100 MG TABLET PO SCH (08:33)
[2016-12-23] MEDS: Pregabalin 75 MG CAPSULE PO SCH ×3 (08:34→22:55)
[2016-12-23] MEDS: Insulin DETEMIR 100 UNIT/ML X5UNITS SQ SCH ×2 (08:34→22:59)
[2016-12-23] MEDS: Nystatin Cream 15 GM TUBE TP SCH ×2 (08:35→23:20)
[2016-12-23] MEDS: Magnesium Oxide 400 MG TABLET PO SCH ×2 (08:36→22:55)
[2016-12-23] MEDS: Fenofibrate 54 MG TABLET PO SCH (08:36)
[2016-12-23] MEDS: Desitin (Zinc Oxide) 56 GM TUBE TP SCH ×3 (08:36→23:19)
[2016-12-23] MEDS: Miconazole w/zinc oxide&karaya 92 APPL/92 GM TUBE TP SCH ×3 (08:36→23:19)
[2016-12-23] MEDS: Insulin LISPRO 300 UNITS/3 ML VIAL SQ SCH ×7 (08:37→22:57)
[2016-12-23] MEDS: Vancomycin 1,250 MG in D5% in Water 250 ML IVPB SCH ×2 (12:24→23:14)
[2016-12-23] MEDS ORDERED: *HR* OxyCODONE Immed Rel 5 MG TABLET PO PRN ×2 (12:36→12:37)
--- NOTE | 2016-12-23 16:49 | Internal Med Progress Note ---
Date of Encounter: 12/23/16 Time of Encounter: 10:30 - Assessment and plan (1) Abscess of skin of abdomen Current Visit: Yes Status: Acute Assessment and plan: Anterior abdominal wall abscess secondary to subcutaneous insulin injections, status post incision and drainage in the emergency room. Initial wound cultures grew gram-positive cocci, follow up final results. Continue IV vancomycin and aztreonam due to penicillin allergy. Continue local wound care with iodoform packing daily. High risk patient, at risk for worsening sepsis and shock. Monitor closely. (2) Chronic kidney disease Current Visit: Yes Status: Chronic Assessment and plan: Chronic, stable creatinine Qualifiers: Chronic kidney disease stage: stage 3 (moderate) Qualified Code(s): N18.3 - Chronic kidney disease, stage 3 (moderate) (3) Hypomagnesemia Current Visit: Yes Status: Acute Assessment and plan: Replaced, will monitor. (4) Sepsis Current Visit: Yes Status: Acute Assessment and plan: Patient presented with fever, tachycardia, mild leukocytosis, lactic acidosis with a source of infection. Blood cultures from emergency room negative X2 Urine culture with E.coli, Abdominal wound cultures from abdominal wall abscess grows gram-positive cocci so far. Follow up final cultures Continue IV vancomycin and aztreonam for now Repeat blood, urine and wound cultures in our hospital remain negative so far. Physical therapy evaluation noted, SW has seen patient, patient wants to go home with home care when stable Qualifiers: Sepsis type: sepsis due to unspecified organism Qualified Code(s): A41.9 - Sepsis, unspecified organism (5) Tachycardia Current Visit: Yes Status: Resolved (6) Diabetes type 2, uncontrolled Current Visit: Yes Status: Chronic Assessment and plan: Hemoglobin A1c noted to be 8.4%. FS ACHS Continue insulin Qualifiers: Diabetes mellitus complication status: with unspecified complications Diabetes mellitus termite control technician insulin use: with fci use Qualified Code(s) : E11.8 - Type 2 diabetes mellitus with unspecified complications; E11.65 - Type 2 diabetes mellitus with hyperglycemia; Z79.4 - adjunct faculty for medical terminology (current) use of insulin (7) Essential hypertension Current Visit: Yes Status: Chronic (8) Obesity Current Visit: Yes Status: Chronic Qualifiers: Obesity type: due to excess calories Obesity severity: non-morbid Qualified Code(s): E66.09 - Other obesity due to excess calories - Subjective Interval history: 71 Y/O F with Uncontrolled DM, admitted and being managed for Sepsis secondary to UTI and abdominal wall abscess She is seen at bedside Denies new complains She is Day 3 on vancomycn and Day 4 on Aztreenam (due to penicillin allergies) She has been clinically stable Wound and blood cultures here have been negative I called Jose to confirm their cultures/sensitivity report She grew ESBL negative E.coli in her urine, Sensitive to Imipenem, Amikacin, Ceftriaxone, Ceftazidime, Genticin, Bactrim, Etapenem and Cefepime. Resistent t Levofloxacin, Cefazolin, Ampicillin, Ciprofloxacin. INtermediate sensitivity to Cefoxitin and Zosyn Wound culture is said to be growing Streptococcus species-pending final sensitivity Patient has since been afebrile, and clinically stable - Constitutional Vitals: Temp Pulse Resp BP Pulse Ox 97.9 F 87 18 100/66 96 12/23/16 16:22 12/23/16 16:22 12/23/16 16:22 12/23/16 16:22 12/23/16 16:22 General appearance: Present: A&O X 3, obese, answers questions appropriately - Head Head exam: Present: atraumatic, normocephalic - Eye Eye exam: Present: PERRL, conjuntiva pink, sclera anicteric Pupils: Present: PERRL - Neck Neck exam general surgery: Present: supple, trachea midline. Absent: lymphadenopathy - Respiratory Respiratory exam: Present: CTAB. Absent: accessory muscle use, rales, rhonchi, wheezes - Cardiovascular Cardiovascular exam: Present: RRR, +S1, +S2. Absent: diastolic murmur, gallop, rubs, systolic murmur - GI/Abdominal Additional comments: Obese, Left mid quadrant with wound dressing slightly soaked, wound is about ~ 3cm wide and deep , packed Pack is not removed today. No tenderness on the abdomen - Extremities Exam Extremities exam: Present: warm, radial pulses palpable and symetrical. Absent : calf tenderness, cyanotic, pedal edema - Neurological Exam Neurological exam: Present: CN II-XII intact, oriented X3, no focal deficits. Absent: pronater drift, facial droop, speech deficit - Skin Skin exam: Present: dry Internal Medicine: Result - Labs CBC & Chem 7: 12/20/16 05:26 12/22/16 10:16 - ABG Interpretation ABG results: PT/INR, D-dimer PT 15.7 Seconds (9.4-12.1) H 12/22/16 10:16 - VTE Documentation of Mechanical Device: Intermittent pneumatic compression device Consult Discharge Plan - Plan Referrals: Toni Lopez MD [Primary Care Provider] - (ECF)
[2016-12-23] MEDS: Lisinopril 20 MG TABLET PO SCH (22:55)
[2016-12-24] MEDS: Aztreonam 2,000 MG in D5% in Water (Mini-Bag+) 100 ML IVPB SCH ×2 (01:45→08:37)
[2016-12-24 05:40] LABS: Basophils # 0.1 K/mcL (0.0-0.2); Basophils % 0.7 %; Eosinophils # 0.3 K/mcL (0.0-0.6); Eosinophils % 3.7 %; Hematocrit 33.3 % (35.3-44.9); Hemoglobin 10.6 g/dL (11.5-15.4); Immature Granulocytes % 2.9 % (0-4); Lymphocytes # 2.6 K/mcL (0.6-4.6); Lymphocytes % 29.1 %; Mean Corpuscular HGB Conc 31.8 g/dL (31.6-35.5); Mean Corpuscular Hemoglobin 29.1 pg (28.0-33.3); Mean Corpuscular Volume 91.5 fL (83.0-100.0); Mean Platelet Volume 10.7 fL (9.4-12.4); Monocytes # 0.6 K/mcL (0.0-1.3); Monocytes % 7.1 %; Neutrophils # 5.1 K/mcL (1.6-8.9); Platelet Count 284 K/mcL (140-400); Red Blood Count 3.64 M/mcL (3.82-4.97); Red Cell Distribution Width 13.4 % (11.5-14.5); Segmented Neutrophils % 56.5 %
[2016-12-24 05:51] LABS: BUN/Creatinine Ratio 13 (6-26); Blood Urea Nitrogen 10 mg/dL (7-20); Calcium 9.9 mg/dL (8.6-10.8); Carbon Dioxide 21 mEq/L (19-29); Chloride 108 mEq/L (98-109); Glucose 138 mg/dL (70-99); Osmolality,Calculated 293 (280-300); Potassium 4.4 mEq/L (3.5-4.5); Sodium 141 mEq/L (136-145); eGFR For African Americans > 60 (> 60); eGFR For Non-African Americans > 60 (> 60)
[2016-12-24] MEDS: *HR* Heparin 5,000 UNIT/ML VIAL SQ SCH (06:35)
[2016-12-24] MEDS: Pregabalin 75 MG CAPSULE PO SCH (08:36)
[2016-12-24] MEDS: Magnesium Oxide 400 MG TABLET PO SCH (08:36)
[2016-12-24] MEDS: Fenofibrate 54 MG TABLET PO SCH (08:36)
[2016-12-24] MEDS: Lactobacillus 1 EACH CAP.SPRINK PO SCH (08:36)
[2016-12-24] MEDS: Fluconazole 100 MG TABLET PO SCH (08:36)
[2016-12-24] MEDS: Insulin LISPRO 300 UNITS/3 ML VIAL SQ SCH ×4 (08:37→11:55)
[2016-12-24] MEDS: Desitin (Zinc Oxide) 56 GM TUBE TP SCH (08:38)
[2016-12-24] MEDS: Nystatin Cream 15 GM TUBE TP SCH (08:38)
[2016-12-24] MEDS: Miconazole w/zinc oxide&karaya 92 APPL/92 GM TUBE TP SCH (08:38)
[2016-12-24] MEDS: Insulin DETEMIR 100 UNIT/ML X5UNITS SQ SCH (08:38)
[2016-12-24 11:36] VITALS: BP 125/78
[2016-12-24] MEDS: Vancomycin 1,250 MG in D5% in Water 250 ML IVPB SCH (11:54)
--- NOTE | 2016-12-24 14:18 | Physician Discharge Referral ---
Home Health/Hosp Referral Info Transfer to: Home Health Attending Provider: Ioana Provider in Charge Post Discharge: PCP - Diagnosis (1) Abscess of skin of abdomen Priority: Primary Status: Acute (2) Chronic kidney disease Priority: Secondary Status: Chronic (3) Hypomagnesemia Priority: Primary Status: Acute (4) Sepsis Priority: Primary Status: Acute (5) Tachycardia Priority: Secondary Status: Resolved (6) Diabetes type 2, uncontrolled Priority: Secondary Status: Chronic (7) Essential hypertension Priority: Secondary Status: Chronic (8) Obesity Priority: Secondary Status: Chronic - Respiratory Orders Smoking Cessation: Smoking cessation has been advised. For more information, call the [place] Tobacco Quit Line at 9-389-AOWX-NOW. - Dressing/Wound Care Site: Anterior abdominal wall Type of Dressing/Treatments w/Frequency: Wound Care: irrigate wound with CSS - Microklenz Dermal Wound Cleanser - spray solution down into the wound and then gently express solution out of wound with 4x4s - lightly pack wound with Mesalt ribbon wicked to base of wound - (do not overstuff) - pad with 4x4s - hold secure with medipore tape - change twice daily and prn if saturated. - Diet/Nutrition Diet/Nutrition Orders: Cardiac, No Concentrated Sweets - Activity Activity Orders: Up ad caitlin - Services Needed Following services are medically necessary services: Home Health Aide - Transfer Medications Home Medications: Atorvastatin [Lipitor] 40 mg PO DAILY 12/19/16 [History] Buspirone HCl [Buspar] 10 mg PO BID 12/19/16 [History] Fenofibrate [Tricor] 54 mg PO DAILY 12/19/16 [History] Insulin ASPART [Novolog] 25 unit SQ TIDWM 12/19/16 [History] Insulin Glargine,Hum.rec.anlog [Lantus Solostar] 60 unit SQ DAILY 12/19/16 [ History] Metformin [Glucophage] 1,000 mg PO BID 12/19/16 [History] Pregabalin [Lyrica] 150 mg PO TID 12/19/16 [History] Quinapril HCl [Accupril] 40 mg PO HS 12/19/16 [History] Desitin (Zinc Oxide) [Desitin] 1 appl TP TID #1 tube 12/24/16 [Rx] Docusate [Colace] 100 mg PO BID PRN #40 capsule 12/24/16 [Rx] Doxycycline 100 mg PO BID #10 capsule 12/24/16 [Rx] Miconazole w/zinc oxide&karaya [Antifungal Extra Thick] 1 appl TP TID #1 tube [Rx] Nystatin Cream [Mycostatin Cream] 1 appl TP BID #1 tube 12/24/16 [Rx] Allergies/Adverse Reactions: Allergies Penicillins [PCN] Allergy (Mild, Verified 12/19/16 23:28) Itching Certification: Further, I certify that my clinical findings support that this patient is homebound (i.e. absences from home require considerable and taxing effort and are for medical reasons or christianity services or infrequently or short duration when for other reasons) because: Homebound Reason: Patient requires assistance of a person or device to safely leave home, Leaving home requires considerable and taxing effort due to condition Attestation: My signature below is to certify that this patient is under my care and that I, or nurse practitioner, or a physician's construction management assistant working with me, has a face-to -face encounter with this patient.
--- NOTE | 2016-12-24 14:45 | Discharge Summary ---
Date of Encounter: 12/24/16 Time of Encounter: 11:00 - Discharge Diagnosis (1) Abscess of skin of abdomen Priority: Primary Status: Acute (2) Chronic kidney disease Priority: Secondary Status: Chronic Qualifiers: Chronic kidney disease stage: stage 3 (moderate) Qualified Code(s): N18.3 - Chronic kidney disease, stage 3 (moderate) (3) Hypomagnesemia Priority: Primary Status: Acute (4) Sepsis Priority: Primary Status: Acute Qualifiers: Sepsis type: sepsis due to unspecified organism Qualified Code(s): A41.9 - Sepsis, unspecified organism (5) Tachycardia Priority: Secondary Status: Resolved (6) Diabetes type 2, uncontrolled Priority: Secondary Status: Chronic Qualifiers: Diabetes mellitus complication status: with unspecified complications Diabetes mellitus senior care insulin use: with senior care use Qualified Code(s) : E11.8 - Type 2 diabetes mellitus with unspecified complications; E11.65 - Type 2 diabetes mellitus with hyperglycemia; Z79.4 - watermelon harvesting supervisor (current) use of insulin (7) Essential hypertension Priority: Secondary Status: Chronic (8) Obesity Priority: Secondary Status: Chronic Qualifiers: Obesity type: due to excess calories Obesity severity: non-morbid Qualified Code(s): E66.09 - Other obesity due to excess calories - Discharge Medications Prescriptions: Desitin (Zinc Oxide) [Desitin] 1 appl TP TID #1 tube Docusate [Colace] 100 mg PO BID PRN #40 capsule PRN Reason: Constipation Doxycycline 100 mg PO BID #10 capsule Miconazole w/zinc oxide&karaya [Antifungal Extra Thick] 1 appl TP TID #1 tube Nystatin Cream [Mycostatin Cream] 1 appl TP BID #1 tube Home Medications: Atorvastatin [Lipitor] 40 mg PO DAILY 12/19/16 [History] Buspirone HCl [Buspar] 10 mg PO BID 12/19/16 [History] Fenofibrate [Tricor] 54 mg PO DAILY 12/19/16 [History] Insulin ASPART [Novolog] 25 unit SQ TIDWM 12/19/16 [History] Insulin Glargine,Hum.rec.anlog [Lantus Solostar] 60 unit SQ DAILY 12/19/16 [ History] Metformin [Glucophage] 1,000 mg PO BID 12/19/16 [History] Pregabalin [Lyrica] 150 mg PO TID 12/19/16 [History] Quinapril HCl [Accupril] 40 mg PO HS 12/19/16 [History] Desitin (Zinc Oxide) [Desitin] 1 appl TP TID #1 tube 12/24/16 [Rx] Docusate [Colace] 100 mg PO BID PRN #40 capsule 12/24/16 [Rx] Doxycycline 100 mg PO BID #10 capsule 12/24/16 [Rx] Miconazole w/zinc oxide&karaya [Antifungal Extra Thick] 1 appl TP TID #1 tube [Rx] Nystatin Cream [Mycostatin Cream] 1 appl TP BID #1 tube 12/24/16 [Rx] Allergies/Adverse Reactions: Allergies Penicillins [PCN] Allergy (Mild, Verified 12/19/16 23:28) Itching Date of admission: 12/20/16 17:32 Primary care physician: Toni Lopez MD Consults: 12/20/16 00:30 Consult to Wound Care [CONS] Routine Reason for Consult: abcess to abdomen early bedsore at coccyx please evaluate and advise Call Completed: No 12/20/16 00:35 Consult to Campus Coordinator [CONS] Routine Comment: 12/20/16 03:58 Consult to Cabin Service Agent [CONS] Routine Reason for SW Consult: Needs help with transportation and logistics of discharge planning 12/20/16 04:00 Consult to Physical Therapy [CONS] Routine Comment: Evaluate, develop and implement POC 12/20/16 18:15 Consult to Occupational Therapy [CONS] Routine Comment: Evaluate, develop and implement POC Discharging clinician: Kartik Triplett Anticipated date of discharge: 12/24/16 - Patient Status Disposition: Home Health Service Condition: Fair Functional capacity at discharge: independent ambulation Overall status at discharge: patient is progressing back to baseline - Discharge Instructions Instructions: Doxycycline (By mouth), Nystatin (On the skin), Diabetes Mellitus Type 2 in Adults (DC) Follow Up With: Toni Lopez MD [Primary Care Provider] - 12/30/16 1:45 pm ([phone]- Dr. Lopez's office number) - Diet and Activity Activity: resume usual activities as tolerated Diet: diabetic diet, low salt diet Interval History: See below Hospital course: Ms. Cleary is a 71 year old female with Uncontrolled DM, She was admitted and managed for Sepsis secondary to UTI and abdominal wall abscess She is seen at bedside today with no new complains She has been clinically stable Wound and blood cultures here have been negative She has received 4 days of Vancomycin and 5 days of Aztreonam (due to penicillin allergies) She grew ESBL negative E.coli in her urine, Sensitive to Imipenem, Amikacin, Ceftriaxone, Ceftazidime, Genticin, Bactrim, Etapenem and Cefepime. Resistant to Levofloxacin, Cefazolin, Ampicillin, Ciprofloxacin. Intermediate sensitivity to Cefoxitin and Zosyn Wound culture is said to be growing Streptococcus species-pending final sensitivity She will be discharged home today to complete 5 more days of doxycycline po for abdominal wall abscess. She has penicillin allergies and high risk of C.dif with Clindamycin po Arrangement for wound dressing has been made by DEBRA She will follow up with PCP Plan of care discussed with patient and daughter, verbalizes understanding. - Time Spent with Patient Total time spent providing and/or coordinating discharge services: Greater than 30 minutes (time spent co-ordinating with manager case management, DEBRA for wound care needs, as well as time spent face to face with patient and documentation. ~45 minutes) - Constitutional Vitals: Temp Pulse Resp BP Pulse Ox 97.9 F 81 16 125/78 97 12/24/16 11:32 12/24/16 11:32 12/24/16 11:32 12/24/16 11:32 12/24/16 11:32 General appearance: Present: A&O X 3, no acute distress, obese, answers questions appropriately - Head Head exam: Present: atraumatic, normocephalic - Eye Eye exam: Present: PERRL, conjuntiva pink, sclera anicteric Pupils: Present: PERRL - Neck Neck exam general surgery: Present: supple, trachea midline. Absent: lymphadenopathy - Respiratory Respiratory exam: Present: CTAB. Absent: accessory muscle use, rales, rhonchi, wheezes - Cardiovascular Cardiovascular exam: Present: RRR, +S1, +S2. Absent: diastolic murmur, gallop, rubs, systolic murmur - GI/Abdominal GI/Abdominal exam: Present: normal bowel sounds, soft, no peritoneal signs. Absent: distended, tenderness Additional comments: Anterior abdominal wall dressing slightly soaked - Extremities Exam Extremities exam: Present: warm, radial pulses palpable and symetrical. Absent : calf tenderness, cyanotic, pedal edema - VTE Documentation of Mechanical Device: Intermittent pneumatic compression device
[2016-12-24] MEDS ORDERED: Aminoglycoside Consult 1 EACH MC ONE (16:19)
--- NOTE | 2016-12-25 10:28 | Physician Discharge Referral ---
Home Health/Hosp Referral Info Transfer to: Home Health Provider in Charge Post Discharge: PCP - Diagnosis (1) Abscess of skin of abdomen Priority: Primary Status: Acute (2) Chronic kidney disease Priority: Secondary Status: Chronic (3) Hypomagnesemia Priority: Primary Status: Acute (4) Sepsis Priority: Primary Status: Resolved (5) Tachycardia Priority: Secondary Status: Resolved (6) Diabetes type 2, uncontrolled Priority: Secondary Status: Chronic (7) Essential hypertension Priority: Secondary Status: Chronic (8) Obesity Priority: Secondary Status: Chronic - Respiratory Orders Oxygen / L per min Smoking Cessation: Smoking cessation has been advised. For more information, call the [place] Tobacco Quit Line at 5-301-NFXL-NOW. - Dressing/Wound Care Site: Anterior abdominal wall Type of Dressing/Treatments w/Frequency: Type of Dressing/Treatments w/Frequency: Wound Care: irrigate wound with CSS - Microklenz Dermal Wound Cleanser - spray solution down into the wound and then gently express solution out of wound with 4x4s - lightly pack wound with Mesalt ribbon wicked to base of wound - (do not overstuff) - pad with 4x4s - hold secure with medipore tape - change twice daily and prn if saturated. - Services Needed Following services are medically necessary services: Nursing, Home Health Aide Home Care Orders: Type of Dressing/Treatments w/Frequency: Wound Care: irrigate wound with CSS - Microklenz Dermal Wound Cleanser - spray solution down into the wound and then gently express solution out of wound with 4x4s - lightly pack wound with Mesalt ribbon wicked to base of wound - (do not overstuff) - pad with 4x4s - hold secure with medipore tape - change twice daily and prn if saturated. - Transfer Medications Prescriptions: Desitin (Zinc Oxide) [Desitin] 1 appl TP TID #1 tube Docusate [Colace] 100 mg PO BID PRN #40 capsule PRN Reason: Constipation Doxycycline 100 mg PO BID #10 capsule Miconazole w/zinc oxide&karaya [Antifungal Extra Thick] 1 appl TP TID #1 tube Nystatin Cream [Mycostatin Cream] 1 appl TP BID #1 tube Home Medications: Atorvastatin [Lipitor] 40 mg PO DAILY 12/19/16 [History] Buspirone HCl [Buspar] 10 mg PO BID 12/19/16 [History] Fenofibrate [Tricor] 54 mg PO DAILY 12/19/16 [History] Insulin ASPART [Novolog] 25 unit SQ TIDWM 12/19/16 [History] Insulin Glargine,Hum.rec.anlog [Lantus Solostar] 60 unit SQ DAILY 12/19/16 [ History] Metformin [Glucophage] 1,000 mg PO BID 12/19/16 [History] Pregabalin [Lyrica] 150 mg PO TID 12/19/16 [History] Quinapril HCl [Accupril] 40 mg PO HS 12/19/16 [History] Desitin (Zinc Oxide) [Desitin] 1 appl TP TID #1 tube 12/24/16 [Rx] Docusate [Colace] 100 mg PO BID PRN #40 capsule 12/24/16 [Rx] Doxycycline 100 mg PO BID #10 capsule 12/24/16 [Rx] Miconazole w/zinc oxide&karaya [Antifungal Extra Thick] 1 appl TP TID #1 tube [Rx] Nystatin Cream [Mycostatin Cream] 1 appl TP BID #1 tube 12/24/16 [Rx] Allergies/Adverse Reactions: Allergies Penicillins [PCN] Allergy (Mild, Verified 12/19/16 23:28) Itching Certification: Further, I certify that my clinical findings support that this patient is homebound (i.e. absences from home require considerable and taxing effort and are for medical reasons or restoration services or infrequently or short duration when for other reasons) because: Homebound Reason: Patient requires assistance of a person or device to safely leave home, Leaving home requires considerable and taxing effort due to condition Attestation: My signature below is to certify that this patient is under my care and that I, or nurse practitioner, or a physician's assistant hvac mechanic working with me, has a face-to -face encounter with this patient.
== END 2016-12-24 16:20 | disposition home health service (06) | DRG 867 ==
LOC: 2ANU → SUATTDRO 12-20 17:32
PROVIDERS: ADMIT Internal Medicine; ATTEND Internal Medicine